=== PATIENT | female | born 1965 | race Caucasian/White ===

== ENCOUNTER 2016-09-30 07:32 | Emergency (ER) | payer BC ==
[2016-09-30] MEDS ORDERED: Reglan 10 MG/2 ML IV ONE (07:46)
[2016-09-30] MEDS ORDERED: Sodium Chloride 0.9% 1000 ML 1,000 ML IV STA (07:46)
[2016-09-30] MEDS ORDERED: TORAdol 30 mg Injection IV ONE (07:46)
--- NOTE | 2016-09-30 07:58 | ERPHSYRPT ---
- History of Present Illness Time Seen by Provider: 09/30/16 07:38 Source: patient Patient Subjective Stated Complaint: pt arrived per pov for htn and nose bleed that started at work today, pt also co headache and left arm pain. Triage Nursing Assessment: pt alert and oriented, resp easy, chest clear, no edema.move all ext well, pt shaking and states she is cold, pt has dried blood to right nostril Physician History: CC: headache Hx: 51 y/o patient with chronic daily headaches. She sees Dr Good. Works in an [employer] in [place]. She had ?diagnosis of MS in past but not confirmed. Today she was at work about an hour ago and had sudden sharp pounding headache. Similar to her normal headaches but she had a nosebleed and her BP was high so she was brought to ER. Nausea without vomiting. Has chronic left side pain. No fall or injury. No N/T/W. She has headaches this bad several times a week. Benadryl and asa upset her stomach. She is on an unknown pain medication thru Dr Good. Timing/Duration: today Allergies/Adverse Reactions: codeine [Codeine] Allergy (Mild, Verified 09/30/16 07:43) diphenhydramine HCl [From Benadryl] Allergy (Mild, Verified 09/30/16 07:43) aspirin Adverse Reaction (Mild, Verified 09/30/16 07:43) Home Medications: Albuterol 8 gm Mdi Hfa [Ventolin Hfa MDI] 8 gm IH QID PRN 10/28/11 [History] Amitriptyline HCl 10 mg [Elavil 10 mg] 10 mg PO DAILY PRN 02/27/14 [ History] Tizanidine HCl [Zanaflex] 4 mg PO HS PRN 02/27/14 [History] Hx Tetanus, Diphtheria Vaccination/Date Given: Yes (UNKNOWN) Hx Influenza Vaccination/Date Given: Yes Hx Pneumococcal Vaccination/Date Given: No Immunizations Up to Date: Yes - Review of Systems Constitutional: No Fever, No Chills Eyes: No Eye Pain, No Vision Changes Ears, Nose, & Throat: Epistaxis (resolved) Respiratory: No Cough, No Dyspnea Cardiac: No Chest Pain Abdominal/Gastrointestinal: Nausea, No Abdominal Pain, No Vomiting Musculoskeletal: No Back Pain, No Neck Pain Skin: No Rash Neurological: Headache, No Dizziness, No Focal Weakness, No Parasthesia All Other Systems: Reviewed and Negative - Past Medical History Pertinent Past Medical History: Yes Neurological History: Migraines, Other ENT History: No Pertinent History Cardiac History: No Pertinent History Respiratory History: Asthma Endocrine Medical History: No Pertinent History Musculoskeletal History: Fractures, Other GI Medical History: No Pertinent History History: No Pertinent History Psycho-Social History: No Pertinent History Female Reproductive Disorders: No Pertinent History Other Medical History: MS - Past Surgical History Past Surgical History: Yes Neuro Surgical History: No Pertinent History Cardiac: No Pertinent History Respiratory: No Pertinent History Gastrointestinal: No Pertinent History Genitourinary: No Pertinent History Musculoskeletal: Orthopedic Surgery Female Surgical History: Section Other Surgical History: LUMPECTOMY BILAT BREASTS-BENIGN. FOOT SURGERY - Social History Smoking Status: Never smoker Exposure to second hand smoke: No Drug Use: none Patient Lives Alone: No - Female History Hx Last Menstrual Period: post - Nursing Vital Signs Nursing Vital Signs: Initial Vital Signs Temperature 98.4 F Temperature Source Oral Pulse Rate 69 Respiratory Rate 16 Blood Pressure [Right Arm] 121/64 Pain Intensity 6 - Physical Exam General Appearance: alert Eye Exam: PERRL/EOMI Ears, Nose, Throat Exam: normal ENT inspection, moist mucous membranes Neck Exam: normal inspection, non-tender, supple Respiratory Exam: normal breath sounds, lungs clear Cardiovascular Exam: regular rate/rhythm, No murmur Gastrointestinal/Abdomen Exam: soft, No tenderness, No distention Extremity Exam: normal inspection, normal range of motion Neurologic Exam: alert, oriented x 3, cooperative, sensation nml, No motor deficits Skin Exam: warm, dry, No rash SpO2 Interpretation: normal SpO2: 98 Oxygen Delivery: CPAP Comments: 09/30/16 07:57 anxious affect - Course Nursing assessment & vital signs reviewed: Yes EKG Interpreted by Me: RATE (73), Sinus Rhythm, NORMAL AXIS, prolonged QT interval (QTc 491), Non-specific ST Changes, Other (QRS 138) - CT Exams head CT Interpretation: Negative, Tele-radiologist Report Ordered Tests: Active Orders 24 hr Category Date Time Status Clean Catch Urine Specimen STAT Care 09/30/16 07:46 Active EKG-ER Only STAT Care 09/30/16 07:59 Active IV Insertion STAT Care 09/30/16 07:46 Active Pulse Oximetry (ED) STAT Care 09/30/16 07:46 Active HEAD WITHOUT CONTRAST [CT] Stat Exams 09/30/16 07:48 Completed CBC W DIFF Stat Lab 09/30/16 07:50 Completed CMP Stat Lab 09/30/16 07:50 Completed Erythrocyte Sedimentation Rate Stat Lab 09/30/16 07:50 Completed UA Stat Lab 09/30/16 08:45 Completed Urine Triage Profile Stat Lab 09/30/16 08:45 Completed VENOUS BLOOD GAS Urgent Lab 09/30/16 07:46 Completed Medication Summary Generic Name Dose Route Start Last Admin Trade Name Freq PRN Reason Stop Dose Admin Magnesium Sulfate/Dextrose 100 mls @ 100 mls/hr 09/30/16 08:00 09/30/16 09:07 Magnesium 1 Gm / 100 Ml D5w IV 09/30/16 09:59 100 mls/hr Q1H JHONNY Administration Discontinued Medications Generic Name Dose Route Start Last Admin Trade Name Freq PRN Reason Stop Dose Admin Sodium Chloride 1,000 mls @ 999 mls/hr 09/30/16 07:46 09/30/16 08:41 Sodium Chloride 0.9% 1000 Ml IV 09/30/16 08:46 999 mls/hr .Q1H1M STA Administration Sodium Chloride Confirm 09/30/16 08:36 Sodium Chloride 0.9% 1000 Ml Administered 09/30/16 08:37 Dose 1,000 mls @ ud .ROUTE .STK-MED ONE Ketorolac Tromethamine 30 mg 09/30/16 07:46 09/30/16 08:52 Toradol 30 Mg Injection IV 09/30/16 07:47 30 mg STAT ONE Administration Ketorolac Tromethamine Confirm 09/30/16 08:36 Toradol 30 Mg Injection Administered 09/30/16 08:37 Dose 30 mg .ROUTE .STK-MED ONE Metoclopramide HCl 10 mg 09/30/16 07:46 09/30/16 08:56 Reglan 10 Mg/2 Ml IV 09/30/16 07:47 10 mg STAT ONE Administration Metoclopramide HCl Confirm 09/30/16 08:36 Reglan 10 Mg/2 Ml Administered 09/30/16 08:37 Dose 10 mg .ROUTE .STK-MED ONE Lab/Rad Data: Laboratory Result Diagrams 09/30/16 07:50 09/30/16 07:50 Laboratory Results 09/30/16 09/30/16 09/30/16 Range/Units 08:45 08:45 07:50 WBC (4.0-10.5) K/mm3 RBC (4.1-5.4) M/mm3 Hgb (12.0-16.0) gm/dl Hct (35-47) % MCV (78-100) fl MCH (26-32) pg MCHC (32-36) g/dl RDW (11.5-14.0) % Plt Count (150-450) K/mm3 MPV (6-9.5) fl Gran % (36.0-66.0) % Lymphocytes % (24.0-44.0) % Monocytes % (0.0-12.0) % Eosinophils % (0.00-5.0) % Basophils % (0.0-0.4) % Basophils # (0-0.4) ESR (0-20) mm/hr VBG pH (7.32-7.42) VBG pCO2 at Pat Temp (42-55) mm/Hg VBG pO2 at Pat Temp (25-40) mm/Hg VBG HCO3 (22-28) meq/L VBG O2 Sat (Sonia) (95-100) VBG Base Excess (-2.0-2.0) VBG Hemoglobin VBG Carboxyhemoglobin (0.0-6.9) % T HGB POC Potassium (3.5-5.1) Sodium 145 (136-145) mEq/L Potassium 3.7 (3.5-5.1) mEq/L Chloride 108 H (98-107) mEq/L Carbon Dioxide 23.5 (21-32) mEq/L Anion Gap 17.0 H (5-15) MEQ/L BUN 19 (9-20) mg/dL Creatinine 1.09 (0.55-1.30) mg/dl Estimated GFR 56 ML/MIN Glucose 105 (70-110) MG/DL Calcium 8.8 (8.5-10.1) mg/dL Total Bilirubin 0.2 (0.2-1.0) mg/dL AST 27 (15-37) U/L ALT 42 (12-78) U/L Alkaline Phosphatase 94 (46-116) U/L Serum Total Protein 7.7 (6.4-8.2) gm/dL Albumin 3.9 (3.4-5.0) g/dL Ur Collection Type CLEAN CATCH Urine Color YELLOW (YELLOW) Urine Appearance CLEAR (CLEAR) Urine pH 5.5 (5-6) Ur Specific Wise 1.015 (1.005-1.025) Urine Protein NEGATIVE (Negative) Urine Glucose (UA) NEGATIVE (NEGATIVE) mg/dL Urine Ketones NEGATIVE (NEGATIVE) Urine Nitrite NEGATIVE (NEGATIVE) Urine Bilirubin NEGATIVE (NEGATIVE) Urine Urobilinogen 0.2 (0-1) mg/dL Urine WBC (Auto) NEGATIVE (NEGATIVE) Urine RBC (Auto) NEGATIVE (0-5) Elvis/ul Urine Opiates Level NEG. (NEGATIVE) Ur Methadone NEG. (NEGATIVE) Urine Barbiturates NEG. (NEGATIVE) Ur Phencyclidine (PCP) NEG. (NEGATIVE) Urine Amphetamine NEG. (NEGATIVE) U Benzodiazepine Level NEG. (NEGATIVE) Urine Cocaine NEG. (NEGATIVE) Urine Marijuana (THC) NEG. (NEGATIVE) Specimen Received 09/30/16 0845 09/30/16 09/30/16 Range/Units 07:50 07:46 WBC 10.4 (4.0-10.5) K/mm3 RBC 4.26 (4.1-5.4) M/mm3 Hgb 13.0 (12.0-16.0) gm/dl Hct 38.5 (35-47) % MCV 90.4 (78-100) fl MCH 30.5 (26-32) pg MCHC 33.8 (32-36) g/dl RDW 12.3 (11.5-14.0) % Plt Count 344 (150-450) K/mm3 MPV 10.6 H (6-9.5) fl Gran % 68.5 H (36.0-66.0) % Lymphocytes % 21.5 L (24.0-44.0) % Monocytes % 7.7 (0.0-12.0) % Eosinophils % 2.0 (0.00-5.0) % Basophils % 0.3 (0.0-0.4) % Basophils # 0.03 (0-0.4) ESR 35 H (0-20) mm/hr VBG pH 7.38 (7.32-7.42) VBG pCO2 at Pat Temp 39 L (42-55) mm/Hg VBG pO2 at Pat Temp 56 H (25-40) mm/Hg VBG HCO3 23.1 (22-28) meq/L VBG O2 Sat (Sonia) 91.8 L (95-100) VBG Base Excess -1.8 (-2.0-2.0) VBG Hemoglobin 13.9 VBG Carboxyhemoglobin 4.2 (0.0-6.9) % T HGB POC Potassium 6.5 H* (3.5-5.1) Sodium (136-145) mEq/L Potassium (3.5-5.1) mEq/L Chloride (98-107) mEq/L Carbon Dioxide (21-32) mEq/L Anion Gap (5-15) MEQ/L BUN (9-20) mg/dL Creatinine (0.55-1.30) mg/dl Estimated GFR ML/MIN Glucose (70-110) MG/DL Calcium (8.5-10.1) mg/dL Total Bilirubin (0.2-1.0) mg/dL AST (15-37) U/L ALT (12-78) U/L Alkaline Phosphatase (46-116) U/L Serum Total Protein (6.4-8.2) gm/dL Albumin (3.4-5.0) g/dL Ur Collection Type Urine Color (YELLOW) Urine Appearance (CLEAR) Urine pH (5-6) Ur Specific Wise (1.005-1.025) Urine Protein (Negative) Urine Glucose (UA) (NEGATIVE) mg/dL Urine Ketones (NEGATIVE) Urine Nitrite (NEGATIVE) Urine Bilirubin (NEGATIVE) Urine Urobilinogen (0-1) mg/dL Urine WBC (Auto) (NEGATIVE) Urine RBC (Auto) (0-5) Elvis/ul Urine Opiates Level (NEGATIVE) Ur Methadone (NEGATIVE) Urine Barbiturates (NEGATIVE) Ur Phencyclidine (PCP) (NEGATIVE) Urine Amphetamine (NEGATIVE) U Benzodiazepine Level (NEGATIVE) Urine Cocaine (NEGATIVE) Urine Marijuana (THC) (NEGATIVE) Specimen Received - Progress Progress Note: 09/30/16 10:42 Pt was medicated. No fever. She had chronic headache. Normal head CT. She ambulated in [place]. Some improvement. Advised follow up with Dr good. Counseled pt/family regarding: lab results, diagnosis, need for follow-up, rad results - Departure Time of Disposition: 10:43 Departure Disposition: Home Clinical Impression: Headache Qualifiers: Headache type: other headache syndrome Qualified Code(s): G44.89 - Other headache syndrome Condition: Stable Critical Care Time: No Referrals: SHAYLA GOOD [Primary Care Provider] - Instructions: Headache Additional Instructions: HEADACHE 1. After discharge from the emergency department, you should rest at home in a cool, dark, quiet place for 12-24 hours. 2. If any of the following signs or symptoms are noticed, you should be re- evaluated right away: A. Visual changes B. Stiff Neck C. Change in quality or location of pain D. Fever E. Recurrent vomiting 3. If pain medications were prescribed or given, they may cause drowsiness. No driving and rest today. Follow up tomorrow with Dr Good. Return for fever or concerns. Stay with family today.
[2016-09-30] MEDS ORDERED: Magnesium 1 Gm / 100 Ml D5W*** 100 ML IV SCH (08:00)
[2016-09-30 08:11] LABS: BASOPHIL % 0.3 % (0.0-0.4); Granulocytes % 68.5 % (36.0-66.0); Lymphocytes % 21.5 % (24.0-44.0); Mean Cell Volume 90.4 fl (78-100); Mean Corpuscular Hemoglobin 30.5 pg (26-32); Mean Platelet Volume 10.6 fl (6-9.5); Monocytes % 7.7 % (0.0-12.0); Platelet Count 344 K/mm3 (150-450); Red Blood Count 4.26 M/mm3 (4.1-5.4); Red Cell Distribution Width 12.3 % (11.5-14.0); White Blood Count 10.4 K/mm3 (4.0-10.5)
[2016-09-30 08:15] LABS: VBG BASE EXCESS -1.8 (-2.0-2.0); VBG CARBOXYHEMOGLOBIN 4.2 % T HGB (0.0-6.9); VBG HCO3- 23.1 meq/L (22-28); VBG HEMOGLOBIN 13.9; VBG O2 SATURATION 91.8 (95-100); VBG pH 7.38 (7.32-7.42)
[2016-09-30 08:16] LABS: VBG POTASSIUM 6.5 (3.5-5.1)
[2016-09-30 08:29] LABS: Erythrocyte Sedimentation Rate 35 mm/hr (0-20)
--- NOTE | 2016-09-30 08:32 | XRAY ---
Indication: Headache. History of chronic migraines. Multiple contiguous axial images obtained through the head without contrast. Comparison: February 27, 2014. Again normal appearing brain parenchyma, ventricles, and bony calvarium. Visualized paranasal sinuses and mastoid air cells are pneumatized and clear. Impression: Stable normal CT head without contrast exam. CT DI 67.80
[2016-09-30] MEDS ORDERED: Magnesium 1 Gm / 100 Ml D5W*** 100 ML IV ONE ×2 (08:36→08:38)
[2016-09-30] MEDS ORDERED: TORAdol 30 mg Injection ONE (08:36)
[2016-09-30] MEDS ORDERED: Sodium Chloride 0.9% 1000 ML 1,000 ML ONE (08:36)
[2016-09-30] MEDS ORDERED: Reglan 10 MG/2 ML ONE (08:36)
[2016-09-30 09:04] LABS: ALBUMIN 3.9 g/dL (3.4-5.0); BILIRUBIN,TOTAL 0.2 mg/dL (0.2-1.0); Carbon Dioxide 23.5 mEq/L (21-32); Potassium 3.7 mEq/L (3.5-5.1); Total Protein 7.7 gm/dL (6.4-8.2)
[2016-09-30 09:11] LABS: Collection Type CLEAN CATCH
[2016-09-30 09:12] LABS: COMPLETE URINE MICROSCOPIC? NO; Ph 5.5 (5-6)
[2016-09-30 09:51] VITALS: BP 121/64; PULSE 69
[2016-09-30 10:42] VITALS: O2SAT 98
== END 2016-09-30 11:11 | disposition home or self-care (01) ==
LOC: ED 07:32
DX: G44.89 Other headache syndrome (principal); I10 Essential (primary) hypertension; R04.0 Epistaxis; R11.0 Nausea; R10.9 Unspecified abdominal pain; Z79.899 Other long term (current) drug therapy
CPT/HCPCS: 36000; 36415; 70450; 80053; 80307; 81002; 82805; 85025; 85652; 93005; 96360; 96365; 96374; 96375; 99285; J1885; J3475

== ENCOUNTER 2018-04-15 12:26 | Emergency (ER) | payer BC, OTHER ==
[2018-04-15] MEDS ORDERED: ZOFRAN ODT 4 MG PO ONE (12:45)
[2018-04-15] MEDS ORDERED: TORAdol 30 mg Injection IM ONE (12:45)
[2018-04-15 12:50] VITALS: BP 147/81; PULSE 71; O2SAT 97
[2018-04-15] MEDS ORDERED: TORAdol 30 mg Injection ONE (12:52)
[2018-04-15] MEDS ORDERED: ZOFRAN ODT 4 MG ONE (12:52)
--- NOTE | 2018-04-15 12:52 | ERPHSYRPT ---
- History of Present Illness Time Seen by Provider: 04/15/18 12:46 Source: patient Exam Limitations: no limitations Physician History: This is a 53-year-old white female with history of migraines, asthma, MS, arthritis, degenerative disc disease She arrives with complaint of pain left side of her head radiating into her left neck symptoms for a week. She has not had a fever, she has had some nausea she does have photophobia. Patient does have a history of chronic migraines and sees a pain process controller and takes Percocet 7.5/325 she states she is not getting good pain control with this. Past medical history includes migraines, asthma, multiple sclerosis, arthritis, degenerative disc disease Past surgical history includes orthopedic surgery, , lumpectomy bilaterally for benign breast masses, foot surgery patient states she has been in menopause Patient denies alcohol tobacco or illicit drug use Timing/Duration: week(s) (one week) Severity: moderate Modifying Factors: Improves With: nothing Associated Symptoms: nausea, headaches, No vomiting, No abdominal pain, No shortness of breath, No heartburn, No diaphoresis, No cough, No chills, No chest pain, No fever, No loss of appetite, No malaise, No rash, No syncope, No seizure, No weakness Allergies/Adverse Reactions: codeine [Codeine] Allergy (Mild, Verified 04/15/18 12:50) diphenhydramine HCl [From Benadryl] Allergy (Mild, Verified 04/15/18 12:50) aspirin Adverse Reaction (Mild, Verified 04/15/18 12:50) Home Medications: Albuterol 8 gm Mdi Hfa [Ventolin Hfa MDI] 8 gm IH QID PRN 10/28/11 [History] Amitriptyline HCl 10 mg [Elavil 10 mg] 10 mg PO DAILY PRN 02/27/14 [ History] Tizanidine HCl [Zanaflex] 4 mg PO HS PRN 02/27/14 [History] Hx Tetanus, Diphtheria Vaccination/Date Given: Yes (UNKNOWN) Hx Influenza Vaccination/Date Given: Yes Hx Pneumococcal Vaccination/Date Given: No - Review of Systems Constitutional: No Fever, No Chills Eyes: Photophobia, No Discharge, No Eye Pain, No Eye Redness, No Itchy, No Foreign Body Sensation Ears, Nose, & Throat: No Symptoms Respiratory: No Cough, No Dyspnea Cardiac: No Chest Pain, No Edema, No Syncope Abdominal/Gastrointestinal: Nausea, No Abdominal Pain, No Vomiting, No Diarrhea Genitourinary Symptoms: No Dysuria Musculoskeletal: Neck Pain (left lateral neck pain), No Arthralgias, No Back Pain, No Deformity, No Fall, No Injury, No Joint Redness, No Joint Pain, No Joint Swelling, No Myalgias Skin: No Rash Neurological: Headache, No Dizziness, No Focal Weakness, No Gait Changes, No Irritability, No Lethargy, No Paralysis, No Parasthesia, No Seizure, No Sensory Changes, No Speech Changes, No Tics, No Tremors, No Vertigo Psychological: No Symptoms Endocrine: No Symptoms All Other Systems: Reviewed and Negative - Past Medical History Pertinent Past Medical History: Yes Neurological History: Migraines, Other ENT History: No Pertinent History Cardiac History: No Pertinent History Respiratory History: Asthma Endocrine Medical History: No Pertinent History Musculoskeletal History: Fractures, Other GI Medical History: No Pertinent History History: No Pertinent History Psycho-Social History: No Pertinent History Female Reproductive Disorders: No Pertinent History Other Medical History: MS - Past Surgical History Past Surgical History: Yes Neuro Surgical History: No Pertinent History Cardiac: No Pertinent History Respiratory: No Pertinent History Gastrointestinal: No Pertinent History Genitourinary: No Pertinent History Musculoskeletal: Orthopedic Surgery Female Surgical History: Section Other Surgical History: LUMPECTOMY BILAT BREASTS-BENIGN. FOOT SURGERY - Social History Smoking Status: Never smoker Exposure to second hand smoke: No Drug Use: none Patient Lives Alone: No - Nursing Vital Signs Nursing Vital Signs: Initial Vital Signs Temperature 98 F 04/15/18 12:41 Pulse Rate 71 04/15/18 12:41 Respiratory Rate 16 04/15/18 12:41 Blood Pressure 147/81 04/15/18 12:41 O2 Sat by Pulse Oximetry 97 04/15/18 12:41 Pain Scale Pain Intensity 8 - Physical Exam General Appearance: mild distress, alert Eye Exam: PERRL/EOMI, eyes nml inspection Ears, Nose, Throat Exam: normal ENT inspection, TMs normal, pharynx normal, moist mucous membranes Neck Exam: normal inspection, non-tender, supple, full range of motion Respiratory Exam: normal breath sounds, lungs clear, No respiratory distress Cardiovascular Exam: regular rate/rhythm, normal heart sounds, normal peripheral pulses Gastrointestinal/Abdomen Exam: soft, normal bowel sounds, No tenderness, No mass Back Exam: normal inspection, normal range of motion, No CVA tenderness, No vertebral tenderness Extremity Exam: normal inspection, normal range of motion, pelvis stable Neurologic Exam: alert, oriented x 3, cooperative, normal mood/affect, nml cerebellar function, nml station & gait, sensation nml, No motor deficits Skin Exam: normal color, warm, dry, No rash SpO2 Interpretation: normal (97%) Oxygen Delivery: Room Air - Course Nursing assessment & vital signs reviewed: Yes Ordered Tests: Medication Summary Discontinued Medications Generic Name Dose Route Start Last Admin Trade Name Freq PRN Reason Stop Dose Admin Ketorolac Tromethamine 60 mg 04/15/18 12:45 04/15/18 12:54 Toradol 30 Mg Injection IM 04/15/18 12:46 60 mg STAT ONE Administration Ketorolac Tromethamine Confirm 04/15/18 12:52 Toradol 30 Mg Injection Administered 04/15/18 12:53 Dose 60 mg .ROUTE .STK-MED ONE Morphine Sulfate 4 mg 04/15/18 13:57 04/15/18 14:03 Morphine Sulfate 4 Mg Inj IM 04/15/18 13:58 4 mg STAT ONE Administration Morphine Sulfate Confirm 04/15/18 14:02 Morphine Sulfate 4 Mg Inj Administered 04/15/18 14:03 Dose 4 mg .ROUTE .STK-MED ONE Ondansetron HCl 4 mg 04/15/18 12:45 04/15/18 12:56 Zofran Odt 4 Mg PO 04/15/18 12:46 4 mg STAT ONE Administration Ondansetron HCl Confirm 04/15/18 12:52 Zofran Odt 4 Mg Administered 04/15/18 12:53 Dose 4 mg .ROUTE .STK-MED ONE - Progress Progress: improved Progress Note: 04/15/18 12:50 53-year-old white female with history of chronic neck pain and headache who is on oxycodone 7.5/325 last filled #60 tablets on 03/23/2018 by a pain process controller here in [place] who also receives oxycodone prior to this on 2017 5/325 #14 and #14 on 02/28/[address] Gamble. She arrives with complaint of left-sided headache nausea photophobia she has not had any fevers. She has a normal neurologic examination. She does state that she doesn't feel like her pain medications control her headaches. Will go ahead and give patient Toradol 60 mg IM Zofran 4 mg sublingually. I have told the patient I cannot give her take-home medications for her chronic headaches she needs to follow-up with her family doctor or pain process controller for this. . 04/15/18 14:00 Patient states she continues to have a headache she does not appear to be in acute distress and actually appears to be improved and resting after IM Toradol and by mouth Zofran. Will give patient morphine 4 mg IM. Anticipate discharge. 04/15/18 14:30 Patient feeling better after morphine will discharge. - Departure Time of Disposition: 14:31 Departure Disposition: Home Clinical Impression: History of chronic pain Headache Qualifiers: Headache type: unspecified Headache chronicity pattern: unspecified pattern Intractability: not intractable Qualified Code(s): R51 - Headache Condition: Fair Critical Care Time: No Referrals: SHAYLA GAMBLE [Primary Care Provider] - Instructions: Headache, Adult (DC) Additional Instructions: Return home. Rest in a dark quiet room. Percocet as prescribed by your pain process controller. Follow-up with your pain process controller or your family doctor. Return for acute distress or for severe symptoms.
[2018-04-15] MEDS ORDERED: MORPHINE SULFATE 4 MG INJ IM ONE (13:57)
[2018-04-15] MEDS ORDERED: MORPHINE SULFATE 4 MG INJ ONE (14:02)
== END 2018-04-15 14:37 | disposition home or self-care (01) ==
LOC: ED 12:26
DX: M54.2 Cervicalgia (principal); G89.29 Other chronic pain; G43.909 Migraine, unspecified, not intractable, without status migrainosus; M19.90 Unspecified osteoarthritis, unspecified site; J45.909 Unspecified asthma, uncomplicated; Z79.899 Other long term (current) drug therapy
CPT/HCPCS: 96372; 99284; J1885; J2270; Q0162

== ENCOUNTER 2018-08-27 22:34 | Emergency (ER) | payer OTHER ==
[2018-08-27] MEDS ORDERED: Zofran 4 MG/2 ML VIAL IV ONE (22:51)
[2018-08-27] MEDS ORDERED: MORPHINE SULFATE 4 MG INJ IV ONE ×2 (22:51→23:42)
--- NOTE | 2018-08-27 22:57 | ERPHSYRPT ---
- History of Present Illness Time Seen by Provider: 08/27/18 22:45 Source: patient Exam Limitations: no limitations Patient Subjective Stated Complaint: pt is alert and oriented. pt is ambulatory with a steady gait. pt c/o chest pain beginning 30 minutes ago after eating. pt states she has nausea, dizziness, lightheadedness, lower back pain, headache. pt states pain in 10/10. lung sounds clear. heart sounds strong and regular. radial pulses strong. pt is not diaphoretic. pt cap refil <3. 97% on RA. Triage Nursing Assessment: see above Physician History: 53-year-old white female with history of migraines, asthma, fractures, chronic pain , arrives with complaint of a headache since yesterday afternoon, states she's had pain on her chest and her left side as well since yesterday afternoon. Patient states that she apparently had lost one of her pain medications yesterday. She states that she has the above complaints. No shortness of breath no nausea no vomiting. Past medical history includes migraines, asthma, fractures, chronic pain. Past surgical history includes orthopedic surgery, lumpectomy bilateral breasts , , foot surgery. Social history negative Timing/Duration: yesterday Severity: moderate Modifying Factors: Improves With: nothing Associated Symptoms: chest pain, headaches, No nausea, No vomiting, No abdominal pain, No shortness of breath, No heartburn, No diaphoresis, No cough, No chills, No fever, No loss of appetite, No malaise, No rash Allergies/Adverse Reactions: codeine [Codeine] Allergy (Mild, Verified 04/15/18 12:50) diphenhydramine HCl [From Benadryl] Allergy (Mild, Verified 04/15/18 12:50) Home Medications: Albuterol 8 gm Mdi Hfa [Ventolin Hfa MDI] 8 gm IH QID PRN 10/28/11 [History] Amitriptyline HCl 10 mg [Elavil 10 mg] 10 mg PO DAILY PRN 02/27/14 [ History] Tizanidine HCl [Zanaflex] 4 mg PO HS PRN 02/27/14 [History] Hx Tetanus, Diphtheria Vaccination/Date Given: Yes (UNKNOWN) Hx Influenza Vaccination/Date Given: Yes Hx Pneumococcal Vaccination/Date Given: No Immunizations Up to Date: Yes - Review of Systems Constitutional: No Fever, No Chills Eyes: No Symptoms Ears, Nose, & Throat: No Symptoms Respiratory: No Cough, No Dyspnea Cardiac: Chest Pain, No Edema, No Palpitations, No Syncope, No Orthopnea Abdominal/Gastrointestinal: No Abdominal Pain, No Nausea, No Vomiting, No Diarrhea Genitourinary Symptoms: No Dysuria Musculoskeletal: Other (left sided pain), No Back Pain, No Neck Pain Skin: No Rash Neurological: Headache, No Dizziness, No Focal Weakness, No Gait Changes Psychological: No Symptoms Endocrine: No Symptoms All Other Systems: Reviewed and Negative - Past Medical History Pertinent Past Medical History: Yes Neurological History: Migraines, Other ENT History: No Pertinent History Cardiac History: No Pertinent History Respiratory History: Asthma Endocrine Medical History: No Pertinent History Musculoskeletal History: Fractures, Other GI Medical History: No Pertinent History History: No Pertinent History Psycho-Social History: No Pertinent History Female Reproductive Disorders: No Pertinent History Other Medical History: MS - Past Surgical History Past Surgical History: Yes Neuro Surgical History: No Pertinent History Cardiac: No Pertinent History Respiratory: No Pertinent History Gastrointestinal: No Pertinent History Genitourinary: No Pertinent History Musculoskeletal: Orthopedic Surgery Female Surgical History: Section Other Surgical History: LUMPECTOMY BILAT BREASTS-BENIGN. FOOT SURGERY - Social History Smoking Status: Never smoker Exposure to second hand smoke: No Drug Use: none Patient Lives Alone: No - Female History Hx Now: No - Nursing Vital Signs Nursing Vital Signs: Initial Vital Signs Temperature 97.9 F 08/27/18 22:34 Pulse Rate 84 08/27/18 22:34 Respiratory Rate 18 08/27/18 22:34 Blood Pressure 174/115 08/27/18 22:34 O2 Sat by Pulse Oximetry 98 08/27/18 22:34 Pain Scale Pain Intensity 8 - Physical Exam General Appearance: moderate distress, alert Eye Exam: PERRL/EOMI, eyes nml inspection Ears, Nose, Throat Exam: normal ENT inspection, TMs normal, pharynx normal, moist mucous membranes Neck Exam: normal inspection, non-tender, supple, full range of motion Respiratory Exam: normal breath sounds, lungs clear, No respiratory distress Cardiovascular Exam: regular rate/rhythm, normal heart sounds, normal peripheral pulses, capillary refill <2 sec Gastrointestinal/Abdomen Exam: soft, normal bowel sounds, No tenderness, No mass Back Exam: normal inspection, normal range of motion, No CVA tenderness, No vertebral tenderness Extremity Exam: normal inspection, normal range of motion, pelvis stable Neurologic Exam: alert, oriented x 3, cooperative, manager business continuity II-XII nml as tested, normal mood/affect, nml cerebellar function, nml station & gait, sensation nml, No motor deficits Skin Exam: normal color, warm, dry, No rash Lymphatic Exam: No adenopathy SpO2 Interpretation: normal (98%) SpO2: 98 - Course Nursing assessment & vital signs reviewed: Yes EKG Interpreted by Me: RATE (71 bpm), Sinus Rhythm, NORMAL AXIS, Right Bundle Branch Block, Other (EKG: Sinus rhythm, will 76 bpm, normal axis, complete right bundle block. No acute changes as compared to March 09, 2017) - Radiology Exams Chest X-ray Interpretation: Interpreted by me (no acute dissease process noted) - CT Exams Head CT Interpretation: Tele-radiologist Report (head CT: No acute intracranial abnormality) Ordered Tests: Active Orders 24 hr Category Date Time Status Batt Machine Operator STAT Care 08/27/18 22:52 Active EKG-ER Only STAT Care 08/27/18 22:51 Active IV Insertion STAT Care 08/27/18 22:51 Active Pulse Oximetry (ED) STAT Care 08/27/18 22:51 Active CHEST 1 VIEW (PORTABLE) Stat Exams 08/27/18 22:52 Taken HEAD WITHOUT CONTRAST [CT] Stat Exams 08/28/18 00:19 Taken CBC W DIFF Stat Lab 08/27/18 23:00 Completed CMP Stat Lab 08/27/18 23:00 Completed D-DIMER QUANTITATION Stat Lab 08/27/18 23:05 Completed HCG QUALITATIVE,SERUM Stat Lab 08/27/18 23:00 Completed PROTIME WITH INR Stat Lab 08/27/18 23:00 Completed PTT Stat Lab 08/27/18 23:00 Completed TROPONIN Q3H Lab 08/27/18 23:00 Completed TROPONIN Q3H Lab 08/28/18 02:00 Ordered TROPONIN Q3H Lab 08/28/18 05:00 Ordered TROPONIN Q3H Lab 08/28/18 08:00 Ordered TROPONIN Q3H Lab 08/28/18 11:00 Ordered Medication Summary Discontinued Medications Generic Name Dose Route Start Last Admin Trade Name Freq PRN Reason Stop Dose Admin Aspirin 324 mg 08/27/18 23:42 08/27/18 23:47 Baby Aspirin 81 Mg Chew PO 08/27/18 23:43 324 mg STAT ONE Administration Aspirin Confirm 08/27/18 23:44 Baby Aspirin 81 Mg Chew Administered 08/27/18 23:45 Dose 324 mg .ROUTE .STK-MED ONE Morphine Sulfate 4 mg 08/27/18 22:51 08/27/18 23:09 Morphine Sulfate 4 Mg Inj IV 08/27/18 22:52 4 mg STAT ONE Administration Morphine Sulfate Confirm 08/27/18 23:08 Morphine Sulfate 4 Mg Inj Administered 08/27/18 23:09 Dose 4 mg .ROUTE .STK-MED ONE Morphine Sulfate 4 mg 08/27/18 23:42 08/27/18 23:47 Morphine Sulfate 4 Mg Inj IV 08/27/18 23:43 4 mg STAT ONE Administration Morphine Sulfate Confirm 08/27/18 23:45 Morphine Sulfate 4 Mg Inj Administered 08/27/18 23:46 Dose 4 mg .ROUTE .STK-MED ONE Ondansetron HCl 4 mg 08/27/18 22:51 08/27/18 23:09 Zofran 4 Mg/2 Ml Vial IV 08/27/18 22:52 4 mg STAT ONE Administration Ondansetron HCl Confirm 08/27/18 23:08 Zofran 4 Mg/2 Ml Vial Administered 08/27/18 23:09 Dose 4 mg .ROUTE .STK-MED ONE Lab/Rad Data: Laboratory Result Diagrams 08/27/18 23:00 08/27/18 23:00 Laboratory Results 08/27/18 08/27/18 08/27/18 Range/Units 23:05 23:00 23:00 WBC (4.0-10.5) K/mm3 RBC (4.1-5.4) M/mm3 Hgb (12.0-16.0) gm/dl Hct (35-47) % MCV (78-100) fl MCH (26-32) pg MCHC (32-36) g/dl RDW (11.5-14.0) % Plt Count (150-450) K/mm3 MPV (6-9.5) fl Gran % (36.0-66.0) % Eos # (Auto) (0-0.5) Absolute Lymphs (auto) (1.0-4.6) Absolute Monos (auto) (0.0-1.3) Lymphocytes % (24.0-44.0) % Monocytes % (0.0-12.0) % Eosinophils % (0.00-5.0) % Basophils % (0.0-0.4) % Absolute Granulocytes (1.4-6.9) Basophils # (0-0.4) PT (9.95-12.35) SECONDS INR (0.8-3.0) APTT (25.3-37.0) SECONDS D-Dimer 332 (215-500) ng/mL Sodium (137-145) mmol/L Potassium (3.5-5.1) mmol/L Chloride (98-107) mmol/L Carbon Dioxide (22-30) mmol/L Anion Gap (5-15) MEQ/L BUN (7-17) mg/dL Creatinine (0.52-1.04) mg/dL Estimated GFR ML/MIN Glucose (74-106) mg/dL Calcium (8.4-10.2) mg/dL Total Bilirubin (0.2-1.3) mg/dL AST (14-36) U/L ALT (0-35) U/L Alkaline Phosphatase (38-126) U/L Troponin I < 0.012 (0.000-0.034) ng/mL Serum Total Protein (6.3-8.2) g/dL Albumin (3.5-5.0) g/dL Serum , Qual NEGATIVE (Negative) 08/27/18 08/27/18 08/27/18 Range/Units 23:00 23:00 23:00 WBC 9.3 (4.0-10.5) K/mm3 RBC 4.67 (4.1-5.4) M/mm3 Hgb 14.2 (12.0-16.0) gm/dl Hct 43.8 (35-47) % MCV 93.8 (78-100) fl MCH 30.4 (26-32) pg MCHC 32.4 (32-36) g/dl RDW 12.0 (11.5-14.0) % Plt Count 345 (150-450) K/mm3 MPV 10.1 H (6-9.5) fl Gran % 66.7 H (36.0-66.0) % Eos # (Auto) 0.18 (0-0.5) Absolute Lymphs (auto) 2.11 (1.0-4.6) Absolute Monos (auto) 0.78 (0.0-1.3) Lymphocytes % 22.6 L (24.0-44.0) % Monocytes % 8.4 (0.0-12.0) % Eosinophils % 1.9 (0.00-5.0) % Basophils % 0.4 (0.0-0.4) % Absolute Granulocytes 6.23 (1.4-6.9) Basophils # 0.04 (0-0.4) PT 11.6 (9.95-12.35) SECONDS INR 1.00 (0.8-3.0) APTT 29.8 (25.3-37.0) SECONDS D-Dimer (215-500) ng/mL Sodium 141 (137-145) mmol/L Potassium 4.4 (3.5-5.1) mmol/L Chloride 105 (98-107) mmol/L Carbon Dioxide 27 (22-30) mmol/L Anion Gap 13.0 (5-15) MEQ/L BUN 15 (7-17) mg/dL Creatinine 1.09 H (0.52-1.04) mg/dL Estimated GFR 56.0 ML/MIN Glucose 89 (74-106) mg/dL Calcium 9.6 (8.4-10.2) mg/dL Total Bilirubin 0.50 (0.2-1.3) mg/dL AST 45 H (14-36) U/L ALT 59 H (0-35) U/L Alkaline Phosphatase 98 (38-126) U/L Troponin I (0.000-0.034) ng/mL Serum Total Protein 7.8 (6.3-8.2) g/dL Albumin 4.5 (3.5-5.0) g/dL Serum , Qual (Negative) - Progress Progress: improved Progress Note: 08/28/18 00:20 53-year-old white female with history of chronic pain, migraines, asthma She arrives with complaints of a headache since yesterday she states she is having chest pain on her left side also pain in her back. Patient with markedly elevated blood pressure. Patient with no EKG remarkable for sinus rhythm at 76 bpm normal axis complete right bundle branch block. Patient with normal CBC CMP d-dimer troponin. Patient given 4 morphine which markedly improvement of her blood pressure given another 4 morphine states her head still hurts. Patient appears to be stable markedly improvement in her blood pressure. Had planned to obtain repeat troponin however patient states she is not feeling any better. Will go ahead and consider CT of the patient's head. And contacted her [facility] one call for possible transfer. It is noted the patient is on Percocet at home which she receives a chronic prescription I asked her about this she first stated that she didn't have any her states she does. Patient has received aspirin for chest pain 08/28/18 01:23 Patient continues to complain of headache and chest pain. Patient blood pressure markedly improved. CT is no acute disease process noted chest x-ray no acute disease process noted chemistry essentially normal CBC essentially normal troponin is normal d-dimer is normal. EKG is noted above no acute changes. I've contacted [facility] one call patient states she wishes to be admitted there if she is admitted apparently Dr. Gamble works at [facility] as well. The patient was auto accepted by nurse Sheppard at [facility]. She will call back with accepting physician . - Departure Time of Disposition: 01:31 Departure Disposition: Transfer ([facility]) Clinical Impression: Chest pain Qualifiers: Chest pain type: unspecified Qualified Code(s): R07.9 - Chest pain, unspecified Headache Qualifiers: Headache type: unspecified Headache chronicity pattern: unspecified pattern Intractability: intractable Qualified Code(s): R51 - Headache Condition: Fair Critical Care Time: No Referrals: SHAYLA GAMBLE [Primary Care Provider] -
[2018-08-27] MEDS ORDERED: Zofran 4 MG/2 ML VIAL ONE (23:08)
[2018-08-27] MEDS ORDERED: MORPHINE SULFATE 4 MG INJ ONE ×2 (23:08→23:45)
[2018-08-27 23:12] LABS: BASOPHIL % 0.4 % (0.0-0.4); Basophil (Absolute #) 0.04 (0-0.4); Eosinophil % 1.9 % (0.00-5.0); Eosinophil (Absolute #) 0.18 (0-0.5); Granulocyte Absolute (ANC) 6.23 (1.4-6.9); Granulocytes % 66.7 % (36.0-66.0); Hematocrit 43.8 % (35-47); Hemoglobin 14.2 gm/dl (12.0-16.0); Lymphocyte (Absolute #) 2.11 (1.0-4.6); Lymphocytes % 22.6 % (24.0-44.0); Mean Cell Volume 93.8 fl (78-100); Mean Corpuscular Hemoglobin 30.4 pg (26-32); Mean Corpuscular Hgb Concent. 32.4 g/dl (32-36); Mean Platelet Volume 10.1 fl (6-9.5); Monocyte (Absolute #) 0.78 (0.0-1.3); Monocytes % 8.4 % (0.0-12.0); Platelet Count 345 K/mm3 (150-450); Red Blood Count 4.67 M/mm3 (4.1-5.4); White Blood Count 9.3 K/mm3 (4.0-10.5)
[2018-08-27 23:14] LABS: PROTIME 11.6 SECONDS (9.95-12.35)
[2018-08-27 23:16] LABS: PTT 29.8 SECONDS (25.3-37.0)
[2018-08-27 23:18] LABS: ALBUMIN 4.5 g/dL (3.5-5.0); BILIRUBIN,TOTAL 0.5 mg/dL (0.2-1.3); Calcium 9.6 mg/dL (8.4-10.2); Creatinine 1 1.09 mg/dL (0.52-1.04); Potassium 4.4 mmol/L (3.5-5.1); Total Protein 7.8 g/dL (6.3-8.2)
[2018-08-27] MEDS ORDERED: BABY ASPIRIN 81 MG CHEW PO ONE (23:42)
[2018-08-27] MEDS ORDERED: BABY ASPIRIN 81 MG CHEW ONE (23:44)
[2018-08-28 02:07] VITALS: BP 109/59
[2018-08-28 02:32] VITALS: PULSE 82; O2SAT 94
--- NOTE | 2018-08-28 08:56 | XRAY ---
Indication: Chest pain. Comparison: August 09, 2011. Portable chest underinflated and clear. Heart is not enlarged. Bony thorax intact. Impression: Nonacute underinflated chest.
--- NOTE | 2018-08-28 08:57 | XRAY ---
Indication: Headache and chest pain. Chronic pain syndrome. Multiple contiguous axial images obtained through the head without contrast. Comparison: September 30, 2016. Again normal appearing brain parenchyma, ventricles, and bony calvarium. Visualized paranasal sinuses and mastoid air cells are clear. Impression: Stable normal CT head without contrast exam. Comment: Preliminary interpretation was made by [facility]. No discrepancy. CTDI 67.00
== END 2018-08-28 02:33 | disposition short-term general hospital (02) ==
LOC: ED 22:34
DX: R07.9 Chest pain, unspecified (principal); R51 Headache; J45.909 Unspecified asthma, uncomplicated; G35 Multiple sclerosis; Z79.899 Other long term (current) drug therapy
CPT/HCPCS: 36415; 70450; 71045; 80053; 81025; 84484; 85025; 85379; 85610; 85730; 93005; 93041; 96374; 96375; 96376; 99285; J2270; J2405; A9270-GY

== ENCOUNTER 2019-07-11 11:19 | Day surgery (SDC) | payer OTHER ==
[2019-07-11] MEDS ORDERED: Xylocaine 1% Vial 30 ML PF IJ ONE (11:20)
[2019-07-11] MEDS ORDERED: Depo-Medrol 40 MG/ML IM ONE (11:20)
[2019-07-11] MEDS ORDERED: Sodium Chloride 0.9(Preservative Free) 10 ML IJ ONE (11:20)
[2019-07-11] MEDS ORDERED: Ketamine HCl 50 MG/ML ONE (12:12)
[2019-07-11] MEDS ORDERED: DIPRIVAN 200 MG/20 ML IV ONE (12:12)
--- NOTE | 2019-07-11 13:12 | XRAY ---
Indication: Lumbar GLENN. Intraoperative fluoroscopy was provided for 15 seconds. Single lateral digital spot images submitted for interpretation demonstrates posterior needle tip projecting just posterior to the lumbosacral junction disc level. Small amount of contrast injected for needle tip placement. Correlate with intraoperative findings/report.
--- NOTE | 2019-07-11 13:38 | XRAY ---
15 seconds fluoroscopy time in surgery for lumbar GLENN.
[2019-07-11] MEDS ORDERED: Lactated Ringers 1,000 ML IV ONE (15:30)
== END 2019-07-11 12:40 | disposition home or self-care (01) ==
LOC: SDC-PAIN 11:19
PROVIDERS: ATTEND Psychiatry & Neurology Pain Medicine
DX: M54.16 Radiculopathy, lumbar region (principal); I10 Essential (primary) hypertension; E03.9 Hypothyroidism, unspecified; J45.909 Unspecified asthma, uncomplicated; G47.30 Sleep apnea, unspecified; F41.8 Other specified anxiety disorders; R00.2 Palpitations; Z79.899 Other long term (current) drug therapy
CPT/HCPCS: 62323; 72100; 77003; 84703; J1030; J2001; J2704; Q9966

== ENCOUNTER 2019-08-01 12:35 | Day surgery (SDC) | payer OTHER ==
[2019-08-01] MEDS ORDERED: Sodium Chloride 0.9(Preservative Free) 10 ML IJ ONE (12:36)
[2019-08-01] MEDS ORDERED: Depo-Medrol 40 MG/ML IM ONE (12:36)
[2019-08-01] MEDS ORDERED: Lactated Ringers 1,000 ML IV ONE (13:12)
[2019-08-01] MEDS ORDERED: DIPRIVAN 200 MG/20 ML IV ONE (13:19)
[2019-08-01] MEDS ORDERED: Ketamine HCl 50 MG/ML ONE (13:20)
--- NOTE | 2019-08-01 14:08 | XRAY ---
Indication: Left L4-S1 transforaminal GLENN. Intraoperative fluoroscopy was provided for 29 seconds. 3 digital spot images submitted for interpretation demonstrate posterior needle tips projecting over the expected course of the left L4 and L5 nerve roots. Small amount of contrast injected for needle tip placement. Correlate with intraoperative findings/report.
--- NOTE | 2019-08-01 14:20 | XRAY ---
29 seconds fluoroscopy time in surgery for left L4-S1 transforaminal GLENN.
== END 2019-08-01 13:57 | disposition home or self-care (01) ==
LOC: SDC-PAIN 12:35
PROVIDERS: ATTEND Psychiatry & Neurology Pain Medicine
DX: M54.16 Radiculopathy, lumbar region (principal); I10 Essential (primary) hypertension; G47.30 Sleep apnea, unspecified; E03.9 Hypothyroidism, unspecified; R00.2 Palpitations; Z79.899 Other long term (current) drug therapy
CPT/HCPCS: 64483; 64484; 72100; 77003; 84703; J1030; J2704; Q9966

== ENCOUNTER 2019-12-05 10:18 | Day surgery (SDC) | payer OTHER ==
[2019-12-05] MEDS ORDERED: Depo-Medrol 40 MG/ML IM ONE (10:19)
[2019-12-05] MEDS ORDERED: Sodium Chloride 0.9(Preservative Free) 10 ML IJ ONE (10:19)
[2019-12-05] MEDS ORDERED: DIPRIVAN 200 MG/20 ML IV ONE (11:52)
[2019-12-05] MEDS ORDERED: Ketamine HCl 50 MG/ML ONE (11:52)
[2019-12-05] MEDS ORDERED: DILAUDID 2 MG INJECTION ONE (12:15)
[2019-12-05] MEDS ORDERED: Lactated Ringers 1,000 ML IV ONE (12:51)
--- NOTE | 2019-12-05 14:30 | XRAY ---
47 seconds fluoroscopy time in surgery for L3-L5 transforaminal GLENN.
--- NOTE | 2019-12-08 21:35 | XRAY ---
Indication: Left transforaminal L3-L5 GLENN. Intraoperative fluoroscopy was provided for 47 seconds. 3 digital spot images submitted for interpretation demonstrate posterior needle tips projected over the expected course of the left L3-L5 nerve roots. Correlate with intraoperative findings/report.
== END 2019-12-05 12:32 | disposition home or self-care (01) ==
LOC: SDC-PAIN 10:18
PROVIDERS: ATTEND Psychiatry & Neurology Pain Medicine
DX: M54.16 Radiculopathy, lumbar region (principal); I10 Essential (primary) hypertension; G47.30 Sleep apnea, unspecified; E03.9 Hypothyroidism, unspecified; R00.2 Palpitations; Z79.899 Other long term (current) drug therapy
CPT/HCPCS: 64483; 64484; 72100; 77003; 84703; J1030; J1170; J2704; Q9966

== ENCOUNTER 2020-01-23 11:46 | Day surgery (SDC) | payer OTHER ==
[2020-01-23] MEDS ORDERED: Depo-Medrol 40 MG/ML IM ONE (11:47)
[2020-01-23] MEDS ORDERED: Sodium Chloride 0.9(Preservative Free) 10 ML IJ ONE (11:47)
[2020-01-23] MEDS ORDERED: DIPRIVAN 200 MG/20 ML IV ONE ×2 (12:36→12:44)
[2020-01-23] MEDS ORDERED: Ketamine HCl 50 MG/ML ONE ×2 (12:36→12:44)
[2020-01-23] MEDS ORDERED: Zofran 4 MG/2 ML VIAL ONE (12:42)
[2020-01-23] MEDS ORDERED: TORAdol 30 mg Injection ONE (12:42)
--- NOTE | 2020-01-23 14:30 | XRAY ---
Indication: Left transforaminal L4-S1 GLENN. Intraoperative fluoroscopy was provided for 53 seconds. 4 digital spot images submitted for interpretation demonstrates posterior needle tips projecting over the expected course of the left L4 and L5 nerve roots. Small amount of contrast injected for needle tip placement. Correlate with intraoperative findings/report.
--- NOTE | 2020-01-23 14:32 | XRAY ---
53 seconds of fluoroscopy was used in surgery for a left L4-L5 and L5-S1 transforaminal GLENN.
[2020-01-23] MEDS ORDERED: Lactated Ringers 1,000 ML IV ONE (14:35)
== END 2020-01-23 13:12 | disposition home or self-care (01) ==
LOC: SDC-PAIN 11:46
PROVIDERS: ATTEND Psychiatry & Neurology Pain Medicine
DX: M54.16 Radiculopathy, lumbar region (principal); I10 Essential (primary) hypertension; R00.2 Palpitations; J45.909 Unspecified asthma, uncomplicated; G47.30 Sleep apnea, unspecified; E03.9 Hypothyroidism, unspecified; Z79.899 Other long term (current) drug therapy
CPT/HCPCS: 64483; 64484; 72100; 77003; 84703; J1030; J1885; J2405; J2704; Q9966

== ENCOUNTER 2020-02-20 13:30 | Day surgery (SDC) | payer MEDICARE ==
[2020-02-20] MEDS ORDERED: Depo-Medrol 40 MG/ML IM ONE (13:31)
[2020-02-20] MEDS ORDERED: Sodium Chloride 0.9(Preservative Free) 10 ML IJ ONE (13:31)
[2020-02-20] MEDS ORDERED: TORAdol 30 mg Injection ONE (14:33)
[2020-02-20] MEDS ORDERED: Lactated Ringers 1,000 ML IV ONE (15:26)
--- NOTE | 2020-02-20 16:48 | XRAY ---
Indication: Left L4-S1 transforaminal GLENN. Intraoperative fluoroscopy was provided for 33 seconds. 4 digital spot images submitted for interpretation demonstrates posterior needle tips projecting over the expected left L4 and L5 nerve roots. Small amount of contrast injected for needle tip placement. Correlate with intraoperative findings/report.
--- NOTE | 2020-02-20 17:17 | XRAY ---
33 seconds fluoroscopy time in surgery for left L4-S1 transforaminal GLENN.
== END 2020-02-20 15:17 | disposition home or self-care (01) ==
LOC: SDC-PAIN 13:30
PROVIDERS: ATTEND Psychiatry & Neurology Pain Medicine
DX: M54.16 Radiculopathy, lumbar region (principal); I10 Essential (primary) hypertension; E03.9 Hypothyroidism, unspecified; F41.8 Other specified anxiety disorders; G47.30 Sleep apnea, unspecified; J45.909 Unspecified asthma, uncomplicated; Z79.899 Other long term (current) drug therapy
CPT/HCPCS: 64479; 64480; 72100; 77003; 84703; J1030; J1885; J2704; Q9966

== ENCOUNTER 2020-04-16 11:55 | Day surgery (SDC) | payer MEDICARE ==
[~2020-04-16 11:55] MED LIST: DIPRIVAN 200 MG/20 ML IV ONE; Ketamine HCl 50 MG/ML ONE
[2020-04-16] MEDS ORDERED: Depo-Medrol 40 MG/ML IM ONE (11:56)
[2020-04-16] MEDS ORDERED: Sodium Chloride 0.9(Preservative Free) 10 ML IJ ONE (11:56)
[2020-04-16] MEDS ORDERED: Lactated Ringers 1,000 ML IV ONE (13:49)
--- NOTE | 2020-04-16 14:21 | XRAY ---
Indication: Left L3-L5 transforaminal GLENN. Intraoperative fluoroscopy was provided for 26 seconds. 4 digital spot images submitted for interpretation demonstrates posterior needle tips projecting over the expected left L3 and L4 nerve roots. Small amount of contrast injected for needle tip placement. Correlate with intraoperative findings/report.
--- NOTE | 2020-04-16 16:55 | XRAY ---
26 seconds of fluoroscopy was used in surgery for a left L3-L4, L4-L5 transforaminal GLENN.
== END 2020-04-16 13:53 | disposition home or self-care (01) ==
LOC: SDC-PAIN 11:55
PROVIDERS: ATTEND Psychiatry & Neurology Pain Medicine
DX: M54.16 Radiculopathy, lumbar region (principal); I10 Essential (primary) hypertension; J45.909 Unspecified asthma, uncomplicated; G47.30 Sleep apnea, unspecified; E03.9 Hypothyroidism, unspecified; F41.8 Other specified anxiety disorders; Z79.899 Other long term (current) drug therapy
CPT/HCPCS: 64483; 64484; 72100; 77003; 84703; J1030; J2704; Q9966

== ENCOUNTER 2020-06-04 09:33 | Day surgery (SDC) | payer MEDICARE ==
[2020-06-04] MEDS ORDERED: Depo-Medrol 40 MG/ML IM ONE (09:34)
[2020-06-04] MEDS ORDERED: LIDOCAINE HCL 2% 100 MG/5 ML IJ ONE (09:34)
[2020-06-04] MEDS ORDERED: DIPRIVAN 200 MG/20 ML IV ONE (11:52)
[2020-06-04] MEDS ORDERED: Ketamine HCl 50 MG/ML ONE (11:52)
--- NOTE | 2020-06-04 12:35 | XRAY ---
Indication: Left L3-S1 MBB. Intraoperative fluoroscopy was provided for 22 seconds. Single digital spot image submitted for interpretation demonstrates posterior needle tips projecting over the expected left L3-S1 nerve roots. Correlate with intraoperative findings/report.
--- NOTE | 2020-06-04 13:14 | XRAY ---
22 seconds fluoroscopy time in surgery for left L3-S1 MBB.
[2020-06-04] MEDS ORDERED: Lactated Ringers 1,000 ML IV ONE (15:29)
== END 2020-06-04 12:23 | disposition home or self-care (01) ==
LOC: SDC-PAIN 09:33
PROVIDERS: ATTEND Psychiatry & Neurology Pain Medicine
DX: M47.816 Spondylosis without myelopathy or radiculopathy, lumbar region (principal); I10 Essential (primary) hypertension; G47.30 Sleep apnea, unspecified; E03.9 Hypothyroidism, unspecified; J45.909 Unspecified asthma, uncomplicated; Z79.899 Other long term (current) drug therapy
CPT/HCPCS: 64493; 64494; 64495; 72020; 77002; 84703; J1030; J2704

== ENCOUNTER 2020-07-30 11:28 | Day surgery (SDC) | payer MEDICARE ==
[2020-07-30] MEDS ORDERED: BUPIVACAINE 0.5% VIAL IJ ONE (11:29)
[2020-07-30] MEDS ORDERED: Depo-Medrol 40 MG/ML IM ONE (11:29)
[2020-07-30] MEDS ORDERED: DIPRIVAN 200 MG/20 ML IV ONE ×2 (13:48→14:00)
[2020-07-30] MEDS ORDERED: Ketamine HCl 50 MG/ML ONE (13:48)
[2020-07-30] MEDS ORDERED: Lactated Ringers 1,000 ML IV ONE (14:37)
--- NOTE | 2020-07-30 16:20 | XRAY ---
Indication: Left L3-S1 MBB. Intraoperative fluoroscopy provided for 18 seconds. Single digital spot images submitted for interpretation demonstrates posterior needle tips projecting over the expected left L3-S1 nerve roots. Correlate with intraoperative findings/report.
--- NOTE | 2020-07-30 16:27 | XRAY ---
55 seconds fluoroscopy time in surgery for left L3-S1 MBB.
== END 2020-07-30 14:20 | disposition home or self-care (01) ==
LOC: SDC-PAIN 11:28
PROVIDERS: ATTEND Psychiatry & Neurology Pain Medicine
DX: M47.816 Spondylosis without myelopathy or radiculopathy, lumbar region (principal); I10 Essential (primary) hypertension; J45.909 Unspecified asthma, uncomplicated; G47.30 Sleep apnea, unspecified; Z79.899 Other long term (current) drug therapy
CPT/HCPCS: 64493; 64494; 64495; 72020; 77002; 84703; J1030; J2704

== ENCOUNTER 2020-10-01 11:35 | Day surgery (SDC) | payer MEDICARE ==
[2020-10-01] MEDS ORDERED: BUPIVACAINE 0.5% VIAL IJ ONE (11:36)
[2020-10-01] MEDS ORDERED: Depo-Medrol 40 MG/ML IM ONE (11:36)
[2020-10-01 11:53] LABS: HCG,QUALITATIVE URINE NEGATIVE (Negative)
[2020-10-01] MEDS ORDERED: DIPRIVAN 200 MG/20 ML IV ONE (13:12)
[2020-10-01] MEDS ORDERED: Ketamine HCl 50 MG/ML ONE (13:12)
[2020-10-01] MEDS ORDERED: Lactated Ringers 1,000 ML IV ONE (13:52)
--- NOTE | 2020-10-01 13:58 | XRAY ---
Indication: Left L3-S1 MBB. Intraoperative fluoroscopy provided for 15 seconds. Single digital spot image submitted for interpretation demonstrate posterior needle tips projecting over the expected left L3-S1 nerve roots. Correlate with intraoperative findings/report.
--- NOTE | 2020-10-01 14:57 | XRAY ---
15 seconds fluoroscopy time in surgery for left L3-S1 MBB.
== END 2020-10-01 13:46 | disposition home or self-care (01) ==
LOC: SDC-PAIN 11:35
PROVIDERS: ATTEND Psychiatry & Neurology Pain Medicine
DX: M47.816 Spondylosis without myelopathy or radiculopathy, lumbar region (principal); I10 Essential (primary) hypertension; G47.30 Sleep apnea, unspecified; E03.9 Hypothyroidism, unspecified; F41.8 Other specified anxiety disorders; J45.909 Unspecified asthma, uncomplicated; Z79.899 Other long term (current) drug therapy
CPT/HCPCS: 64493; 64494; 64495; 72020; 77002; 84703; J1030; J2704

== ENCOUNTER 2020-11-12 14:37 | Day surgery (SDC) | payer MEDICARE ==
[2020-11-12] MEDS ORDERED: Xylocaine 1% Vial 30 ML PF IJ ONE (14:38)
[2020-11-12] MEDS ORDERED: Depo-Medrol 40 MG/ML IM ONE (14:38)
[2020-11-12] MEDS ORDERED: BUPIVACAINE 0.5% VIAL IJ ONE (14:38)
[2020-11-12] MEDS ORDERED: DIPRIVAN 200 MG/20 ML IV ONE ×2 (16:52→16:55)
--- NOTE | 2020-11-12 18:31 | XRAY ---
Indication: Left L4-S1 RFA. Intraoperative fluoroscopy provided for 52 seconds. 3 digital spot images submitted for interpretation demonstrates posterior needle tips projecting over the expected left L3-S1 nerve roots. Correlate with intraoperative findings/report.
--- NOTE | 2020-11-13 09:02 | XRAY ---
52 seconds fluoroscopy time in surgery for left L4-S1 RFA.
== END 2020-11-12 17:42 | disposition home or self-care (01) ==
LOC: SDC-PAIN 14:37
PROVIDERS: ATTEND Psychiatry & Neurology Pain Medicine
DX: M47.816 Spondylosis without myelopathy or radiculopathy, lumbar region (principal); I10 Essential (primary) hypertension; R00.2 Palpitations; G47.30 Sleep apnea, unspecified; E03.9 Hypothyroidism, unspecified; F41.8 Other specified anxiety disorders; Z79.899 Other long term (current) drug therapy
CPT/HCPCS: 64635; 64636; 72100; 77002; 84703; J1030; J2001; J2704

== ENCOUNTER 2021-01-21 15:38 | Day surgery (SDC) | payer MEDICARE ==
[2021-01-21] MEDS ORDERED: Depo-Medrol 40 MG/ML IM ONE (15:39)
[2021-01-21] MEDS ORDERED: Sodium Chloride 0.9(Preservative Free) 10 ML IJ ONE (15:39)
[2021-01-21] MEDS ORDERED: DIPRIVAN 200 MG/20 ML IV ONE (17:34)
[2021-01-21] MEDS ORDERED: Ketamine HCl 50 MG/ML ONE (17:35)
[2021-01-21] MEDS ORDERED: Versed 2 MG/2 ML Injection ONE (17:39)
[2021-01-21] MEDS ORDERED: Lactated Ringers 1,000 ML IV ONE (18:50)
--- NOTE | 2021-01-21 20:53 | XRAY ---
Indication: Left L3-S1 transforaminal GLENN. Intraoperative fluoroscopy provided for 47 seconds. 2 digital spot images submitted for interpretation demonstrates posterior needle tips projecting over the expected left L4 and L5 nerve roots. Small amount of contrast injected for needle tip placement. Correlate with intraoperative findings/report.
--- NOTE | 2021-01-22 08:46 | XRAY ---
47 seconds of fluoroscopy was used in surgery for a left L3-S1 transforaminal GLENN.
== END 2021-01-21 18:05 | disposition home or self-care (01) ==
LOC: SDC-PAIN 15:38
PROVIDERS: ATTEND Psychiatry & Neurology Pain Medicine
DX: M54.16 Radiculopathy, lumbar region (principal); Z79.899 Other long term (current) drug therapy
CPT/HCPCS: 64483; 64484; 72100; 77003; J1030; J2250; J2704; Q9966

== ENCOUNTER 2021-02-25 09:39 | Day surgery (SDC) | payer MEDICARE ==
[2021-02-25] MEDS ORDERED: Sodium Chloride 0.9(Preservative Free) 10 ML IJ ONE (09:40)
[2021-02-25] MEDS ORDERED: Depo-Medrol 40 MG/ML IM ONE (09:40)
[2021-02-25] MEDS ORDERED: Lactated Ringers 1,000 ML IV ONE (11:24)
[2021-02-25] MEDS ORDERED: TORAdol 30 mg Injection ONE (11:41)
[2021-02-25] MEDS ORDERED: DIPRIVAN 200 MG/20 ML IV ONE (11:57)
--- NOTE | 2021-02-25 13:51 | XRAY ---
Indication: Left L3-L5 transforaminal GLENN. Intraoperative fluoroscopy provided for 59 seconds. 3 digital spot image submitted for interpretation demonstrates posterior needle tips projecting over the expected left L4 and L5 nerve roots. Small amount of contrast injected for needle tip placement. Correlate with intraoperative findings/report.
--- NOTE | 2021-02-25 13:57 | XRAY ---
59 seconds fluoroscopy time in surgery for left L3-L5 transforaminal GLENN>
== END 2021-02-25 12:35 | disposition home or self-care (01) ==
LOC: SDC-PAIN 09:39
PROVIDERS: ATTEND Psychiatry & Neurology Pain Medicine
DX: M54.16 Radiculopathy, lumbar region (principal); Z79.899 Other long term (current) drug therapy
CPT/HCPCS: 64483; 64484; 72100; 77003; J1030; J1885; J2704; Q9966

== ENCOUNTER 2021-06-11 13:09 | Day surgery (SDC) | payer MEDICARE ==
[2021-06-11] MEDS ORDERED: Sodium Chloride 0.9% 10 ML FLUSH Syringe IJ ONE (13:10)
[2021-06-11] MEDS ORDERED: Depo-Medrol 40 MG/ML IM ONE (13:10)
[2021-06-11] MEDS ORDERED: Lactated Ringers 1,000 ML IV ONE (14:25)
[2021-06-11] MEDS ORDERED: DIPRIVAN 200 MG/20 ML IV ONE (14:52)
[2021-06-11] MEDS ORDERED: Ketamine HCl 50 MG/ML ONE (15:07)
[2021-06-11] MEDS ORDERED: Zofran 4 MG/2 ML VIAL ONE (15:21)
[2021-06-11] MEDS ORDERED: TORAdol 30 mg Injection ONE (15:21)
--- NOTE | 2021-06-11 16:35 | XRAY ---
Indication: Left L3-L5 transforaminal GLENN. Intraoperative fluoroscopy provided for 41 seconds. 4 digital spot image submitted for interpretation demonstrates posterior needle tips projecting over the expected left L3 and L4 nerve roots. Small amount of contrast injected for needle tip placement. Correlate with intraoperative findings/report.
--- NOTE | 2021-06-11 16:39 | XRAY ---
41 seconds fluoroscopy time in surgery for left L3-L5 transforaminal GLENN.
== END 2021-06-11 15:35 | disposition home or self-care (01) ==
LOC: SDC-PAIN 13:09 → EDSTATUS 15:45
PROVIDERS: ATTEND Psychiatry & Neurology Pain Medicine
DX: M54.16 Radiculopathy, lumbar region (principal); I10 Essential (primary) hypertension; Z79.899 Other long term (current) drug therapy
CPT/HCPCS: 64483; 64484; 72100; 77003; J1030; J1885; J2405; J2704; Q9966

== ENCOUNTER 2021-11-11 08:59 | Day surgery (SDC) | payer MEDICARE ==
[2021-11-11] MEDS ORDERED: Sodium Chloride 0.9(Preservative Free) 10 ML IJ ONE (09:00)
[2021-11-11] MEDS ORDERED: Depo-Medrol 40 MG/ML IM ONE (09:00)
[2021-11-11] MEDS ORDERED: DIPRIVAN 200 MG/20 ML IV ONE (10:31)
[2021-11-11] MEDS ORDERED: TORAdol 30 mg Injection ONE (10:37)
[2021-11-11] MEDS ORDERED: Zofran 4 MG/2 ML VIAL ONE (10:38)
[2021-11-11] MEDS ORDERED: Lactated Ringers 1,000 ML IV ONE (10:38)
--- NOTE | 2021-11-11 16:46 | XRAY ---
24 seconds of fluoroscopy was used in surgery for a left L3-L5 transforaminal GLENN.
--- NOTE | 2021-11-12 13:29 | XRAY ---
Indication: Left L3-L5 transforaminal GLENN. Intraoperative fluoroscopy provided for 24 seconds. 3 digital spot image submitted for interpretation demonstrates posterior needle tips projecting over the expected left L3 and L4 nerve roots. Small amount of contrast injected for needle tip placement. Correlate with intraoperative findings/report.
== END 2021-11-11 10:58 | disposition home or self-care (01) ==
LOC: SDC-PAIN 08:59
PROVIDERS: ATTEND Psychiatry & Neurology Pain Medicine
DX: M54.16 Radiculopathy, lumbar region (principal); Z79.899 Other long term (current) drug therapy
CPT/HCPCS: 64483; 64484; 72100; 77003; J1030; J1885; J2405; J2704

== ENCOUNTER 2022-06-16 13:15 | Day surgery (SDC) | payer MEDICARE ==
[2022-06-16] MEDS ORDERED: Depo-Medrol 40 MG/ML IM ONE (13:16)
[2022-06-16] MEDS ORDERED: Sodium Chloride 0.9(Preservative Free) 10 ML IJ ONE (13:16)
[2022-06-16] MEDS ORDERED: DIPRIVAN 200 MG/20 ML IV ONE (14:48)
[2022-06-16] MEDS ORDERED: Lactated Ringers 1,000 ML IV ONE (15:18)
--- NOTE | 2022-06-16 16:37 | XRAY ---
30 seconds of fluoroscopy was used in surgery for a left L3-L5 transforaminal GLENN.
--- NOTE | 2022-06-16 16:37 | XRAY ---
Indication: Left L3-L5 transforaminal GLENN. Intraoperative fluoroscopy provided for 30 seconds. 3 digital spot images submitted for interpretation demonstrates posterior needle tips projecting over the expected left L3 and L4 nerve roots. Small amount of contrast injected for needle tip placement. Correlate with intraoperative findings/report.
== END 2022-06-16 15:25 | disposition home or self-care (01) ==
LOC: SDC-PAIN 13:15
PROVIDERS: ATTEND Psychiatry & Neurology Pain Medicine
DX: M54.16 Radiculopathy, lumbar region (principal); Z79.899 Other long term (current) drug therapy
CPT/HCPCS: 64483; 64484; 72100; 77003; J1030; J2704; Q9966

== ENCOUNTER 2023-10-12 13:38 | Day surgery (SDC) | payer MEDICARE ==
[2023-10-12] MEDS ORDERED: Decadron 4 MG INJ IV ONE (13:39)
[2023-10-12] MEDS ORDERED: Sodium Chloride 0.9(Preservative Free) 10 ML IJ ONE (13:39)
[2023-10-12] MEDS ORDERED: DIPRIVAN 200 MG/20 ML IV ONE (16:00)
[2023-10-12] MEDS ORDERED: TORAdol 30 mg Injection ONE (16:25)
[2023-10-12] MEDS ORDERED: Lactated Ringers 1,000 ML IV ONE (17:02)
--- NOTE | 2023-10-12 18:47 | XRAY ---
Indication: Left L4-S1 transforaminal GLENN Intraoperative fluoroscopy provided for 25 seconds. 4 digital spot images submitted for interpretation demonstrates posterior needle tips projecting over the expected left L4 and L5 nerve roots. Small amount of contrast injected for needle tip placement. Correlate with intraoperative findings/report.
--- NOTE | 2023-10-13 08:50 | XRAY ---
25 seconds of fluoroscopy was used in surgery for a left L4-S1 transforaminal GLENN.
== END 2023-10-12 16:33 | disposition home or self-care (01) ==
LOC: SDC-PAIN 13:38
PROVIDERS: ATTEND Psychiatry & Neurology Pain Medicine
DX: M54.16 Radiculopathy, lumbar region (principal)
CPT/HCPCS: 64483; 64484; 72100; 77003; J1100; J1885; J2704; Q9966

== ENCOUNTER 2024-10-24 09:27 | Emergency (ER) | payer MEDICARE ==
[2024-10-24 09:41] VITALS: TEMP 96.8
[2024-10-24 10:26] VITALS: RESP 18
[2024-10-24 10:37] LABS: Absolute Neutrophil Ct (ANC) 4.17 x10^3/uL (1.56-6.13); BASOPHIL % 0.7 % (0.1-1.2); Basophil (Absolute #) 0.05 x10^3/uL (0.01-0.08); Eosinophil % 1.8 % (0.7-5.8); Eosinophil (Absolute #) 0.12 x10^3/uL (0.04-0.36); Hematocrit 34.6 % (34.1-44.9); Hemoglobin 11.7 g/dL (11.2-15.7); IMMATURE GRAN # 0.01 x10^3u/L (0.001-0.031); IMMATURE GRAN % 0.1 % (0.001-0.429); Lymphocyte (Absolute #) 1.94 x10^3/uL (1.18-3.74); Lymphocytes % 29.1 % (19.3-51.7); Mean Corpuscular Hemoglobin 31.5 pg (25.6-32.2); Mean Corpuscular Hgb Concent. 33.8 g/dL (32.2-35.5); Monocyte (Absolute #) 0.38 x10^3/uL (0.24-0.86); Monocytes % 5.7 % (4.7-12.5); Neutrophil % 62.6 % (34.0-71.1); Platelet Count 269 x10^3/uL (182-369); Red Blood Count 3.72 x10^6/uL (3.93-5.22); Red Cell Distribution Width 11.9 % (11.7-14.4); White Blood Count 6.7 x10^3/uL (3.98-10.04)
[2024-10-24] MEDS ORDERED: Sodium Chloride 0.9% 1000 ML 1,000 ML ONE (10:39)
[2024-10-24] MEDS ORDERED: TYLENOL EXTRA STRENGTH 500 MG ONE (10:39)
[2024-10-24] MEDS: Sodium Chloride 0.9% 1000 ML 1,000 ML IV STA (10:40)
[2024-10-24] MEDS: TYLENOL EXTRA STRENGTH 500 MG PO STA (10:41)
[2024-10-24 10:50] LABS: ALBUMIN 4.2 g/dL (3.5-5.0); ANION GAP 12.8 MEQ/L (5-15); BILIRUBIN,TOTAL 0.2 mg/dL (0.2-1.3); Calcium 8.9 mg/dL (8.4-10.2); Creatinine 1 1.04 mg/dL (0.52-1.04); EST GLOMERULAR FILTRATION RATE 62.3 ML/MIN; Potassium 3.7 mmol/L (3.5-5.1)
[2024-10-24 10:52] LABS: INR 0.91 (0.8-3.0); PTT 23.4 SECONDS (25.1-36.5)
--- NOTE | 2024-10-24 11:11 | ERPHSYRPT ---
- History of Present Illness Time Seen by Provider: 10/24/24 09:54 Historian: patient Exam Limitations: no limitations Patient Subjective Stated Complaint: pt reports black blood in stool and bright red today that just "pours" out Triage Nursing Assessment: Pt brought self to the ER, hypertensive, rates pain as 8/10, pulses normal, skin n/w/d, pain to medial abdomen and to the LLQ, pt reports that blood pours out without a bowel movement, denies chest pain, no difficulty breathing, doesn't appear to be in any distress Physician History: 59 years old female with history of asthma, hypothyroidism, chronic back pain with multiple surgeries in the past presented in the ER with complaint of left sided abdominal pain more in the lower abdomen with associated melena and hematochezia. Patient report for the last 2 to 3 days she is having episodes with dark stool and since yesterday she is having bright red blood per rectum. Pain is moderate to severe sharp shooting, aggravated with palpation movements and lying on the left side. No history of hemorrhoids, not taking any blood thinners, no previous GI bleed. No fever or chills reported. No history of diverticulitis. Allergies/Adverse Reactions: codeine [Codeine] Allergy (Mild, Verified 10/24/24 09:41) diphenhydramine HCl [From Benadryl] Allergy (Mild, Verified 10/24/24 09:41) Sulfa (Sulfonamide Antibiotics) Allergy (Verified 10/24/24 11:45) Home Medications: Albuterol 8 gm Mdi Hfa [Ventolin Hfa MDI] 8 gm IH QID PRN 10/28/11 [History] Amitriptyline HCl 10 mg [Elavil 10 mg] 50 mg PO DAILY PRN 02/27/14 [History] Tizanidine HCl [Zanaflex] 4 mg PO HS PRN 02/27/14 [History] Desvenlafaxine [Desvenlafaxine ER] 50 mg PO DAILY 10/24/24 [History] Fluticasone/Umeclidin/Vilanter [Trelegy Ellipta 200-62.5-25] 1 inh PO DAILY 10/24/24 [History] Gabapentin [Neurontin] 800 mg PO .3 TO 4 TIMES DAILY 04/30/25 [History] Levothyroxine Sodium 25 Mcg [Synthroid 25 Mcg] 25 mcg PO DAILY 10/24/24 [History] PANTOPRAZOLE 40 mg Tablet [Protonix 40MG Tablet] 40 mg PO QAM 10/24/24 [History] Rosuvastatin Calcium 20 mg PO DAILY 10/24/24 [History] Sertraline HCl [Zoloft] 25 mg PO DAILY 10/24/24 [History] Verapamil HCl [Verapamil ER Pm] 100 mg PO DAILY 10/24/24 [History] Hx Tetanus, Diphtheria Vaccination/Date Given: Yes (UNKNOWN) Hx Influenza Vaccination/Date Given: Yes Hx Pneumococcal Vaccination/Date Given: No Travel Risk - International Travel Have you traveled outside of the country in past 3 weeks: No - Emerging Infectious Disease Are you exhibiting symptoms associated with any current EIDs: Yes Symptoms: Abdominal Pain - Review of Systems Constitutional: No Symptoms Eyes: No Symptoms Ears, Nose, & Throat: No Symptoms Respiratory: No Symptoms Cardiac: No Symptoms Abdominal/Gastrointestinal: Abdominal Pain, Hematochezia, Melena Genitourinary Symptoms: No Symptoms Musculoskeletal: Back Pain Skin: No Symptoms Neurological: No Symptoms Endocrine: No Symptoms Hematologic/Lymphatic: No Symptoms - Past Medical History Pertinent Past Medical History: Yes Neurological History: Migraines, Other ENT History: No Pertinent History Cardiac History: No Pertinent History Respiratory History: Asthma Endocrine Medical History: No Pertinent History Musculoskeletal History: Fractures, Other GI Medical History: No Pertinent History History: No Pertinent History Psycho-Social History: No Pertinent History Female Reproductive Disorders: No Pertinent History Other Medical History: MS - Past Surgical History Past Surgical History: Yes Neuro Surgical History: No Pertinent History Cardiac: No Pertinent History Respiratory: No Pertinent History Gastrointestinal: No Pertinent History Genitourinary: No Pertinent History Musculoskeletal: Orthopedic Surgery Female Surgical History: Section Other Surgical History: LUMPECTOMY BILAT BREASTS-BENIGN. FOOT SURGERY - Social History Smoking Status: Never smoker Exposure to second hand smoke: No Drug Use: none - Social Determinants of Health Will the patient participate in the screening: Yes Do you worry about a steady place to live?: No Do you have any problems with any of the following?: No known problems In the past 12 months,have you had to go without utilities?: No Transportation Issues: No Has anyone in your support network made you feel unsafe?: No Have you or anyone in your house had to go w/o enough food: No - Nursing Vital Signs Nursing Vital Signs: Initial Vital Signs Temperature 96.8 F 10/24/24 09:34 Pulse Rate 66 10/24/24 09:34 Blood Pressure 185/127 10/24/24 09:34 O2 Sat by Pulse Oximetry 100 10/24/24 09:34 Pain Scale Pain Intensity 2 - Physical Exam General Appearance: no apparent distress, alert, anxiety Eye Exam: PERRL/EOMI Ears, Nose, Throat Exam: pharynx normal Neck Exam: normal inspection, non-tender, supple, full range of motion Respiratory Exam: normal breath sounds, lungs clear Cardiovascular Exam: regular rate/rhythm, normal heart sounds Gastrointestinal/Abdomen Exam: soft, normal bowel sounds, tenderness (Left lower quadrant with minimal guarding) Back Exam: normal inspection Extremity Exam: normal inspection, normal range of motion Neurologic Exam: alert, oriented x 3, cooperative Skin Exam: normal color SpO2 Interpretation: normal SpO2: 99 O2 Delivery: Room Air Ordered Tests: Active Orders 24 hr Category Date Time Status IV Insertion STAT Care 10/24/24 10:06 Active NPO (ED) STAT Care 10/24/24 10:06 Active ABDOMEN AND PELVIS W CONTRAST [CT] Stat Exams 10/24/24 10:07 Completed CBC W DIFF Stat Lab 10/24/24 10:36 Completed CMP Stat Lab 10/24/24 10:36 Completed LIPASE Stat Lab 10/24/24 10:36 Completed Lactic Acid Stat Lab 10/24/24 10:36 Completed Occult Blood-Fecal Screen (Diagnostic) [OB-FECAL SCREEN Lab 10/24/24 Ordered ] Stat PROTIME WITH INR Stat Lab 10/24/24 10:36 Completed PTT Stat Lab 10/24/24 10:36 Completed UA W/RFX UR CULTURE Stat Lab 10/24/24 12:26 Completed Medication Summary Discontinued Medications Generic Name Dose Route Start Last Admin Trade Name Freq PRN Reason Stop Dose Admin Acetaminophen 1,000 mg 10/24/24 10:39 10/24/24 10:41 Acetaminophen 500 Mg Tablet PO 10/24/24 10:40 1,000 mg STAT STA Administration Acetaminophen Confirm 10/24/24 10:39 Acetaminophen 500 Mg Tablet Administered 10/24/24 10:40 Dose 1,000 mg .ROUTE .STK-MED ONE Sodium Chloride 1,000 mls @ 999 mls/hr 10/24/24 10:06 10/24/24 12:04 Sodium Chloride 0.9% 1000 Ml IV 10/24/24 11:06 Infused .Q1H1M STA Infusion Sodium Chloride Confirm 10/24/24 10:39 Sodium Chloride 0.9% 1000 Ml Administered 10/24/24 10:40 Dose 1,000 mls @ ud .ROUTE .STK-MED ONE Pantoprazole Sodium 40 mg 10/24/24 11:10 10/24/24 12:09 Pantoprazole 40 Mg Vial IV 10/24/24 11:11 40 mg STAT ONE Administration Pantoprazole Sodium Confirm 10/24/24 12:07 Pantoprazole 40 Mg Vial Administered 10/24/24 12:08 Dose 40 mg IV .STK-MED ONE Lab/Rad Data: Laboratory Result Diagrams 10/24/24 10:36 10/24/24 10:36 Laboratory Results 10/24/24 10/24/24 10/24/24 Range/Units 12:26 10:36 10:36 WBC (3.98-10.04) x10^3/uL RBC (3.93-5.22) x10^6/uL Hgb (11.2-15.7) g/dL Hct (34.1-44.9) % MCV (79.4-94.8) fL MCH (25.6-32.2) pg MCHC (32.2-35.5) g/dL RDW (11.7-14.4) % Plt Count (182-369) x10^3/uL MPV (9.4-12.3) fL Gran % (34.0-71.1) % Immature Gran % (Auto) (0.001-0.429) % Nucleat RBC Rel Count (0.00-0.2) % Eos # (Auto) (0.04-0.36) x10^3/uL Immature Gran # (Auto) (0.001-0.031) x10^3u/L Absolute Lymphs (auto) (1.18-3.74) x10^3/uL Absolute Monos (auto) (0.24-0.86) x10^3/uL Absolute Nucleated RBC (0.00-0.012) x10^3u/L Lymphocytes % (19.3-51.7) % Monocytes % (4.7-12.5) % Eosinophils % (0.7-5.8) % Basophils % (0.1-1.2) % Absolute Granulocytes (1.56-6.13) x10^3/uL Basophils # (0.01-0.08) x10^3/uL PT 10.0 (9.4-12.5) SECONDS INR 0.91 (0.8-3.0) APTT 23.4 L (25.1-36.5) SECONDS Sodium 142 (135-145) mmol/L Potassium 3.7 (3.5-5.1) mmol/L Chloride 109 H (98-107) mmol/L Carbon Dioxide 24 (22-30) mmol/L Anion Gap 12.8 (5-15) MEQ/L BUN 18 H (7-17) mg/dL Creatinine 1.04 (0.52-1.04) mg/dL Estimated GFR 62.3 ML/MIN Glucose 88 (74-106) mg/dL Lactic Acid (0.4-2.0) Calcium 8.9 (8.4-10.2) mg/dL Total Bilirubin 0.20 (0.2-1.3) mg/dL AST 56 H (14-36) U/L ALT 41 H (0-35) U/L Alkaline Phosphatase 96 (38-126) U/L Serum Total Protein 7.0 (6.3-8.2) g/dL Albumin 4.2 (3.5-5.0) g/dL Lipase 456 H (23-300) U/L Urine Color Yellow (Yellow) Urine Appearance Clear (Clear) Urine pH 5.5 (4.6-8.0) Ur Specific [place] >=1.030 A (1.005-1.030) Urine Protein Negative (Negative) Urine Glucose (UA) Negative (Negative) mg/dL Urine Ketones Negative (Negative) Urine Blood Negative (Negative) Urine Nitrite Negative (Negative) Urine Bilirubin Negative (Negative) Urine Urobilinogen 0.2 (0.2) mg/dL Ur Leukocyte Esterase Negative (Negative) U Hyaline Cast (Auto) NONE SEEN (0-2) /LPF Urine Microscopic RBC 0-2 (0-5) /HPF Urine Microscopic WBC 0-2 (0-5) /HPF Ur Epithelial Cells None Seen (None Seen) /HPF Urine Bacteria None Seen (None Seen) /HPF Urine Culture Reflexed NO (NO) 10/24/24 10/24/24 Range/Units 10:36 10:36 WBC 6.7 (3.98-10.04) x10^3/uL RBC 3.72 L (3.93-5.22) x10^6/uL Hgb 11.7 (11.2-15.7) g/dL Hct 34.6 (34.1-44.9) % MCV 93.0 (79.4-94.8) fL MCH 31.5 (25.6-32.2) pg MCHC 33.8 (32.2-35.5) g/dL RDW 11.9 (11.7-14.4) % Plt Count 269 (182-369) x10^3/uL MPV 10.0 (9.4-12.3) fL Gran % 62.6 (34.0-71.1) % Immature Gran % (Auto) 0.1 (0.001-0.429) % Nucleat RBC Rel Count 0.0 (0.00-0.2) % Eos # (Auto) 0.12 (0.04-0.36) x10^3/uL Immature Gran # (Auto) 0.01 (0.001-0.031) x10^3u/L Absolute Lymphs (auto) 1.94 (1.18-3.74) x10^3/uL Absolute Monos (auto) 0.38 (0.24-0.86) x10^3/uL Absolute Nucleated RBC 0.00 (0.00-0.012) x10^3u/L Lymphocytes % 29.1 (19.3-51.7) % Monocytes % 5.7 (4.7-12.5) % Eosinophils % 1.8 (0.7-5.8) % Basophils % 0.7 (0.1-1.2) % Absolute Granulocytes 4.17 (1.56-6.13) x10^3/uL Basophils # 0.05 (0.01-0.08) x10^3/uL PT (9.4-12.5) SECONDS INR (0.8-3.0) APTT (25.1-36.5) SECONDS Sodium (135-145) mmol/L Potassium (3.5-5.1) mmol/L Chloride (98-107) mmol/L Carbon Dioxide (22-30) mmol/L Anion Gap (5-15) MEQ/L BUN (7-17) mg/dL Creatinine (0.52-1.04) mg/dL Estimated GFR ML/MIN Glucose (74-106) mg/dL Lactic Acid 0.6 (0.4-2.0) Calcium (8.4-10.2) mg/dL Total Bilirubin (0.2-1.3) mg/dL AST (14-36) U/L ALT (0-35) U/L Alkaline Phosphatase (38-126) U/L Serum Total Protein (6.3-8.2) g/dL Albumin (3.5-5.0) g/dL Lipase (23-300) U/L Urine Color (Yellow) Urine Appearance (Clear) Urine pH (4.6-8.0) Ur Specific [place] (1.005-1.030) Urine Protein (Negative) Urine Glucose (UA) (Negative) mg/dL Urine Ketones (Negative) Urine Blood (Negative) Urine Nitrite (Negative) Urine Bilirubin (Negative) Urine Urobilinogen (0.2) mg/dL Ur Leukocyte Esterase (Negative) U Hyaline Cast (Auto) (0-2) /LPF Urine Microscopic RBC (0-5) /HPF Urine Microscopic WBC (0-5) /HPF Ur Epithelial Cells (None Seen) /HPF Urine Bacteria (None Seen) /HPF Urine Culture Reflexed (NO) - Progress Progress: improved Progress Note: 10/24/24 14:55 59 years old is evaluated in the ER for left-sided abdominal pain with melena and hematochezia. Patient is given fluids and symptomatic treatment, feeling better on reevaluation. She does not want any pain medication with Tylenol. Workup showed normal white count, stable hemoglobin and hematocrit, fairly unremarkable chemistries. CT abdomen pelvis did not show any findings of acute colitis, diverticulitis or any other acute intra-abdominal pelvic pathology. Patient is recommended to have stool sample which she could not provide while in the ER. She is hemodynamically stable. She is also given Protonix, she has history of acid reflux and does take PPIs at home which she is advised to continue. She has no upper abdominal tenderness. No previous history of GI bleed. Has no external hemorrhoids, rectal exam did not reveal any blood, brown color stool. I do not know the exact cause of her bleeding, could be internal bleeding hemorrhoids. Did not appreciate any fissure. But recommended colonoscopy as patient is stable to go home. Discussed signs symptoms of worsening needing return to ER which she seems understanding. Complexity of problems addressed: Moderate acute Complexity of data reviewed/analyzed: Moderate to extensive Risk of complication: Low to moderate Counseled pt/family regarding: lab results, diagnosis, need for follow-up, rad results Medical Desision Making - Diagnostic Testing Diagnostic test were ordered, analyzed, and reviewed by me: Yes Radiological Interpretation: Reviewed by me - Risk of complications The pt has a mod risk of morbidity or mortality based on: Need for prescription drug management - Departure Departure Disposition: Home Clinical Impression: Rectal bleeding, Left sided abdominal pain Condition: Stable Critical Care Time: No Referrals: SHAYLA MONTES DE OCA [Primary Care Provider, UNKNOWN] - Follow up with PCP 1 day ROBINSON NASCIMENTO [ACTIVE STAFF, GENERAL SURGERY] - Follow up/PCP as directed Referral Note: Call for appointment for reevaluation/colonoscopy/endoscopy Instructions: Gastrointestinal Bleeding (DC) Additional Instructions: Follow-up with primary care and general surgery for reevaluation and colonoscopy/endoscopy for further evaluation. Return to ER if having increased blood in the stool, dark stool, worsening abdominal pain or if develop fever chills etc.
[2024-10-24 12:04] VITALS: BP 152/48
[2024-10-24] MEDS ORDERED: PROTONIX 40 MG IV IV ONE (12:07)
[2024-10-24] MEDS: PROTONIX 40 MG IV IV ONE (12:09)
[2024-10-24 12:55] LABS: Appearance Clear (Clear); Bacteria None Seen /HPF (None Seen); Bilirubin Negative (Negative); Blood Negative (Negative); Epithelial Cells None Seen /HPF (None Seen); Glucose, Urine Negative (Negative); Hyaline Casts NONE SEEN /LPF (0-2); Ketones Negative (Negative); Leukocyte Esterase Negative (Negative); Nitrite Negative (Negative); Ph 5.5 (4.6-8.0); Protein,Urine Dip Negative (Negative); RBC 0-2 /HPF (0-5); Specific Gravity >=1.030 (1.005-1.030); Urobilinogen 0.2 mg/dL (0.2); WBC 0-2 /HPF (0-5)
[2024-10-24 13:02] VITALS: PULSE 59
--- NOTE | 2024-10-24 13:03 | XRAY ---
Indication: Left abdomen pain. GI bleed. Diverticulitis. Multiple contiguous axial images obtained through the abdomen and pelvis using 80 cc Isovue 370 contrast. Comparison: None Lung bases clear. Heart not enlarged. Noncontrasted stomach and bowel loops appear nonobstructed. Appendix not visualized. Mild scattered colonic fecal debris greatest in right hemicolon. Additional radiopacities throughout colon presumed ingested medication, bismuth, or barium. Minimal sigmoid diverticulosis without diverticulitis. Both kidneys enhance and excrete with 5 mm right renal cortical cyst. No free fluid/air. Remaining liver, gallbladder, pancreas, spleen, adrenal glands, kidneys, ureters, bladder, and uterus are unremarkable. Mild scattered aortoiliac calcifications. No AAA or pathologic retroperitoneal lymphadenopathy. Osseous structures intact with mild degenerative changes throughout thoracolumbar spine and left L5 spondylolysis with 2 mm listhesis. Impression: 1. Mild colonic fecal stasis, sigmoid diverticulosis, tiny right renal cyst, arteriosclerotic disease, and chronic bony findings. 2. Remaining CT abdomen/pelvis with contrast exam is negative.
[2024-10-24 15:01] VITALS: O2SAT 99
== END 2024-10-24 15:17 | disposition home or self-care (01) ==
LOC: ED 09:27
DX: K62.5 Hemorrhage of anus and rectum (principal); R10.32 Left lower quadrant pain; R10.12 Left upper quadrant pain; Z79.899 Other long term (current) drug therapy
CPT/HCPCS: 36415; 74177; 80053; 81001; 83605; 83690; 85025; 85610; 85730; 96361; 96374; 99284; 99285; A9270-GY